=== PATIENT | female | born 1965 | race Caucasian/White ===

== ENCOUNTER 2023-04-22 22:32 | Emergency (ER) | payer BC ==
[~2023-04-22] VITALS: Ht 154.9 cm; Wt 68.0 kg
[~2023-04-22 22:32] MED LIST: ALLEGRA-D 12 HO1 TER PO; CIPRO500 MG PO; FLAGYL500 MG PO; HYDROCODONE BIT1 T11 PO
[2023-04-23] MEDS ORDERED: AMOX-CLAV 875-1 EACH PO (01:38)
== END 2023-04-23 02:01 | disposition home or self-care (01) ==
LOC: ED 22:32
DX: J18.9 Pneumonia, unspecified organism (principal); F32.A Depression, unspecified; Z88.2 Allergy status to sulfonamides; Z20.822 Contact with and (suspected) exposure to COVID-19

== ENCOUNTER 2024-12-01 17:35 | Emergency (ER) | payer BC ==
[~2024-12-01] VITALS: Ht 154.9 cm; Wt 75.7 kg
[~2024-12-01 17:35] MED LIST changes: +AMOX-CLAV 875-1 EACH PO
[2024-12-01] MEDS ORDERED: MORPHINE Sulfate 2 MG/ML SYR IV ONE (19:30)
[2024-12-01] MEDS ORDERED: SODIUM CHLORIDE 0.9% 500 ML IV ONE (19:30)
[2024-12-01] MEDS ORDERED: Ondansetron Hydrochloride 4 MG/2 ML VIAL IV ONE (19:30)
[2024-12-01 19:43] LABS: BASO % 0.3 % (0.0-1.0); EOS # 0.1 10*3/uL (0.0-0.4); HEMATOCRIT 38.5 % (37.0-47.0); MEAN CELL VOLUME 90.6 fl (81.0-99.0); MEAN CORPUSCULAR HGB 28.7 pg (27.0-31.0); MEAN CORPUSCULAR HGB CONC 31.7 g/dl (33.0-37.0); MEAN PLATELET VOLUME 9.2 fl (9.6-12.3); MONO # 0.7 10*3/uL (0.1-1.0); MONO % 6.1 % (3.0-9.0); NEUT % 71.3 % (47.0-73.0); PLATELET COUNT AUTOMATED 284 10*3/uL (130-400); RED BLOOD COUNT 4.25 10*6/uL (4.10-5.10); RED CELL DISTRI WIDTH 12.2 % (0-14.5); WHITE BLOOD COUNT 11.2 10*3/uL (4.8-10.8)
[2024-12-01 20:10] LABS: ALKALINE PHOSPHATASE 98 U/L (46-116); BUN 13 mg/dl (9-23); CHLORIDE 103 mmol/L (98-107); POTASSIUM 3.6 mmol/L (3.4-5.1); SGPT/ALT 18 U/L (5-49); TOTAL PROTEIN 7.5 gm/dL (6.0-8.0)
[2024-12-01] MEDS ORDERED: Ciprofloxacin Hydrochloride 500 MG TAB PO ONE (21:40)
[2024-12-01] MEDS ORDERED: PERCOCET 5-3251 EACH PO (21:40)
[2024-12-01] MEDS ORDERED: Ondansetron4 MG PO (21:40)
[2024-12-01] MEDS ORDERED: metroNIDAZOLE 500 MG TAB PO ONE (21:40)
[2024-12-01] MEDS ORDERED: CIPRO500 MG PO (21:40)
[2024-12-01] MEDS ORDERED: METRONIDAZOLE500 M1 PO (21:40)
[2024-12-02] MEDS ORDERED: FLUCONAZOLE100 MG PO (00:13)
== END 2024-12-01 22:00 | disposition home or self-care (01) ==
LOC: ED 17:35
PROVIDERS: Emergency Medicine
DX: K57.32 Diverticulitis of large intestine without perforation or abscess without bleeding (principal); F32.A Depression, unspecified; Z79.899 Other long term (current) drug therapy; Z88.2 Allergy status to sulfonamides